=== PATIENT | male | born 1965 | race American Indian/Alaskan Native ===

== ENCOUNTER 2016-09-09 10:50 | Outpatient (CLI) | payer BC ==
[2016-09-09 11:15] LABS: Basophils % (Auto) 0.1 % (0.0-1.8); Eosinophils % (Auto) 1.4 % (0.0-4.3); Hematocrit 42.5 % (35.5-45.6); Mean Corpuscular HGB Conc 33 % (32-34); Mean Corpuscular Hemoglobin 29 pg (28-32); Mean Corpuscular Volume 89 fl (84-94); Platelet Count 296 K/mm3 (140-440); Red Cell Distribution Width 14.4 % (13.2-15.2); White Blood Count 8.4 K/mm3 (4.5-11.0)
[2016-09-09 11:45] LABS: Alanine Aminotransferase 19 units/L (7-56); Albumin 4.3 g/dL (3.9-5); Albumin/Globulin Ratio 1.3 %; Alkaline Phosphatase 74 units/L (35-129); Anion Gap 19 mmol/L; BUN/Creatinine Ratio 18.75; Bilirubin,Total 0.4 mg/dL (0.1-1.2); Blood Urea Nitrogen 15 mg/dL (9-20); Calcium 9.2 mg/dL (8.4-10.2); Carbon Dioxide 22 mmol/L (22-30); Chloride 102.8 mmol/L (98-107); Cholesterol 218 mg/dL (50-199); Glucose 95 mg/dL (75-100); HDL Cholesterol 48 mg/dL (40-59); LDL Cholesterol,Direct 142 mg/dL (50-130); Potassium 4.1 mmol/L (3.6-5.0); Sodium 140 mmol/L (137-145); Total Protein 7.5 g/dL (6.3-8.2); Triglycerides 143 mg/dL (2-149)
== END 2016-09-09 10:51 | disposition home or self-care (01) ==
LOC: LAB 10:50
DX: Z13.29 Encounter for screening for other suspected endocrine disorder (principal); Z12.5 Encounter for screening for malignant neoplasm of prostate; I10 Essential (primary) hypertension; E78.5 Hyperlipidemia, unspecified; R73.9 Hyperglycemia, unspecified
CPT/HCPCS: 36415; 80053; 80061; 83036; 84153; 84443; 85025

== ENCOUNTER 2017-05-21 07:28 | Day surgery (SDC) | payer BC ==
[~2017-05-21 07:28] MED LIST: WATER FOR IRRIG STERILE IR ONE; WATER FOR IRRIG STERILE ONE
[2017-05-21] MEDS ORDERED: NACL 0.9% 1000 ML 1,000 ML IV SCH (08:00)
--- NOTE | 2017-05-21 08:43 | Anesthesia Consultation ---
Anesthesia Consult and Med Hx Date of service: 05/21/17 - Airway Anesthetic Teeth Evaluation: Good ROM Head & Neck: Adequate Mental/Hyoid Distance: Adequate Mallampati Class: Class II Intubation Access Assessment: Probably Good - Pulmonary Exam CTA: Yes - Cardiac Exam Cardiac Exam: RRR - Pre-Operative Health Status ASA Pre-Surgery Classification: ASA2 Proposed Anesthetic Plan: MAC - Cardiovascular System Hx Hypertension: Yes - Additional Comments Anesthesia Medical History Comments: hypercholesterolemia
--- NOTE | 2017-05-21 08:43 | Anesthesia Day of Surgery ---
Anesthesia Day of Surgery - Day of Surgery Patient Examined: Yes Patient H&P Reviewed: Yes Patient is NPO: Yes
[2017-05-21] MEDS ORDERED: DIPRIVAN 10 MG/ML IV ONE ×2 (09:54)
--- NOTE | 2017-05-21 10:27 | Short Stay Summary ---
Short Stay Documentation Date of service: 05/21/17 Narrative H&P: Mr Bueno is a 51 yo AAM who presents for screening colonoscopy. Patient denies having prior colonoscopy. Denies gi complaints at this time including abd pain, gi bleeding, change in bowel habits, or weight loss. No known family h/o colon cancer. - History Past Medical History: hypertension, hyperlipidemia Past Surgical History: No surgical history Social history: other (occasional alcohol) - Allergies and Medications Current Medications: Allergies No Known Allergies Allergy (Verified 05/20/17 12:36) Home Medications Medication Instructions Recorded Confirmed Last Taken Type Irbesartan 1 tab PO DAILY 05/20/17 05/21/17 05/21/17 History Pravastatin 1 tab PO DAILY 05/20/17 05/21/17 05/21/17 History amLODIPine 1 tab PO DAILY 05/20/17 05/21/17 05/21/17 History Active Medications Sodium Chloride (Nacl 0.9% 1000 Ml) 1,000 mls @ 50 mls/hr IV DIRECT PATRICIO Last Admin: 05/21/17 08:28 Dose: 50 mls/hr - Physical exam General appearance: no acute distress HEENT: PERRLA, EOMI Lungs: Clear to auscultation Heart: Regular rate, Normal S1, Normal S2 Gastrointestinal: normal, normoactive bowel sounds Extremities: No edema, Full ROM - Brief post op/procedure progress note Date of procedure: 05/21/17 Pre-op diagnosis: screening colonoscopy Post-op diagnosis: other (colon polyps x 2 removed, internal hemorrhoids) Procedure: Colonoscopy with snare polypectomy and biopsy Anesthesia: MAC Findings: ~1.5-2 cm semi-pedunculated polyp in ascending colon, removed with hot snare polypectomy (retrieved) < 5 mm sessile polyp at the hepatic flexure, removed and retrieved with cold biopsy forceps Internal hemorrhoids Quality of prep was fair Surgeon: SANTOS MERCAHNT Estimated blood loss: minimal Pathology: list (Jar A - ascending colon polyp, Jar B - hepatic flexure polyp) Specimen disposition: to lab Condition: stable - Disposition Condition at discharge: Good Disposition: DC- TO HOME OR SELFCARE
--- NOTE | 2017-05-21 10:30 | Operative Report ---
Operative Report Operative Report: COLONOSCOPY PROCEDURE NOTE DATE OF PROCEDURE: 05/21/2017 ENDOSCOPIST: Sam Jalloh PRE-OP DIAGNOSIS: screening colonoscopy POST-OP DIAGNOSIS: colon polyps x 2, internal hemorrhoids, fair prep ANESTHESIA: MAC COMPLICATIONS: no immediate complications ESTIMATED BLOOD LOSS: minimal PROCEDURE: After consent was obtained, the patient was placed in the left lateral decubitus position. The fujinon colonoscope was inserted into the rectum under direct vision, and advanced to the cecum without difficulty. The patient tolerated the procedure well. The views of the mucosa were fair. The quality of prep was fair. The patient's vital signs were monitored continuously throughout the procedure. FINDINGS: There was one approximately 1.5-2cm semi-pedunculated polyp in the ascending colon. The polyp was removed with hot snare polypectomy, and retrieved. There was one < 5 mm sessile polyp at the hepatic flexure. The polyp was removed and retrieved with cold forceps biopsy. Internal hemorrhoids on retroflexion view. IMPRESSION: 1. Colon polyps removed as above 2. Internal hemorrhoids 3. Fair prep RECOMMENDATIONS: -follow-up pathology -repeat colonoscopy for surveillance in 3 years -no NSAIDs (ibuprofen, aleve, advil, motrin, naproxyn, goody powder, etc) for 5 days after polypectomy
[2017-05-21 10:46] VITALS: BP 115/79
--- NOTE | 2017-05-21 10:56 | Post Anesthesia Evaluation ---
- Post Anesthesia Evaluation Patient Participated: Yes Airway Patent: Yes Stable Respiratory Function: Yes Nausea/Vomiting: No Temp > 96.8F: Yes Pain Manageable: Yes Adequeate Hydration: Yes Anesthesia Complications: No Block Receding Appropriately: Not Applicable Patient on Ventilator: No
== END 2017-05-21 07:29 | disposition home or self-care (01) ==
LOC: GIO 07:28
PROVIDERS: ATTEND Internal Medicine Gastroenterology
DX: Z12.11 Encounter for screening for malignant neoplasm of colon (principal); D12.2 Benign neoplasm of ascending colon; D12.3 Benign neoplasm of transverse colon; K64.8 Other hemorrhoids; I10 Essential (primary) hypertension; E78.00 Pure hypercholesterolemia, unspecified; Z79.899 Other long term (current) drug therapy
CPT/HCPCS: 45380; 45384; 88305; J2704; J7030

== ENCOUNTER 2017-09-12 13:15 | Emergency (ER) | payer BC ==
[2017-09-12 13:26] VITALS: BP 136/84
[2017-09-12] MEDS ORDERED: NACL 0.9% 1000 ML 1,000 ML IV ONE (13:32)
[2017-09-12] MEDS ORDERED: ZOFRAN IV ONE (13:32)
--- NOTE | 2017-09-12 13:37 | Emergency Department Report ---
HPI - General Chief Complaint: Abdominal Pain Time Seen by Provider: 09/12/17 13:32 - HPI HPI: 51-year-old -[place] male, who is also a nurse here, presents as a patient the emergency Department with a complaint of some nausea, vomiting and abdominal cramping. He says that the symptoms began earlier this morning but worsened just prior to signing in as a patient. He just vomited 3 times in the bathroom. He denies any fever, dysuria or any actual abdominal pain at this time other than some cramping. He has a past medical history of hypertension. He denies any recent travel or any possibility of recent undercooked foods. He has not taken anything for her symptoms prior to presentation. ED Past Medical Hx - Past Medical History Previous Medical History?: Yes Hx Hypertension: Yes - Surgical History Past Surgical History?: No - Social History Smoking Status: Never Smoker Substance Use Type: Alcohol - Medications Home Medications: Home Medications Medication Instructions Recorded Confirmed Last Taken Type Irbesartan 1 tab PO DAILY 05/20/17 09/12/17 09/12/17 History Pravastatin 1 tab PO DAILY 05/20/17 09/12/17 09/12/17 History amLODIPine 1 tab PO DAILY 05/20/17 09/12/17 09/12/17 History Ondansetron [Zofran Odt] 4 mg PO Q8H PRN #14 tab.rapdis 09/12/17 Unknown Rx ED Review of Systems ROS: Stated complaint: N/V DEHYDRATION Other details as noted in HPI Comment: All other systems reviewed and negative Constitutional: denies: chills, fever Eyes: denies: eye pain, eye discharge, vision change ENT: denies: ear pain, throat pain Respiratory: denies: cough, shortness of breath, wheezing Cardiovascular: denies: chest pain, palpitations Gastrointestinal: nausea, vomiting Genitourinary: denies: urgency, dysuria Musculoskeletal: denies: back pain, joint swelling, arthralgia Skin: denies: rash, lesions Neurological: denies: headache, weakness, paresthesias Physical Exam - Physical Exam Vital Signs: Vital Signs 09/12/17 13:22 Temperature 98.2 F Pulse Rate 78 Respiratory 16 Rate Blood Pressure 136/84 O2 Sat by Pulse 100 Oximetry Physical Exam: GENERAL: The patient is well-developed well-nourished. HENT: Normocephalic. Atraumatic. Patient has moist mucous membranes. EYES: Extraocular motions are intact. NECK: Supple. Trachea is midline. CHEST/LUNGS: Clear to auscultation. There is no respiratory distress noted. HEART/CARDIOVASCULAR: Regular. There is no tachycardia. There is no murmur. ABDOMEN: Abdomen is soft, nontender. Patient has normal bowel sounds. There is no abdominal distention. SKIN: Skin is warm and dry. NEURO: The patient is awake, alert, and oriented. The patient is cooperative. The patient has no focal neurologic deficits. The patient has normal speech. MUSCULOSKELETAL: There is no tenderness or deformity. There is no limitation range of motion. There is no evidence of acute injury. ED Course Vital Signs 09/12/17 13:22 Temperature 98.2 F Pulse Rate 78 Respiratory 16 Rate Blood Pressure 136/84 O2 Sat by Pulse 100 Oximetry ED Medical Decision Making - Lab Data Result diagrams: 09/12/17 13:42 09/12/17 13:42 - Medical Decision Making The patient received a 1 L fluid bolus of normal saline and a dose of Zofran. Upon reevaluation he is feeling improved. He does not have any abdominal pain and says that he just feels slightly queasy. Labs are mostly unremarkable. There was a slight elevation in his white blood cell count and the lipase is most likely reactive to the nausea and vomiting. He will be discharged home with Zofran ODT and will return to the emergency department with any intractable vomiting, development of abdominal pain, worsening of his symptoms or any acute distress. Vital signs stable including being afebrile. - Differential Diagnosis gastroenteritis, food poisoning, viral syndrome, cholelcystitis, pancreatit Critical Care Time: No Critical care attestation.: If time is entered above; I have spent that time in minutes in the direct care of this critically ill patient, excluding procedure time. ED Disposition Clinical Impression: Abdominal cramping Nausea & vomiting Qualifiers: Vomiting type: unspecified Vomiting Intractability: non-intractable Qualified Code(s): R11.2 - Nausea with vomiting, unspecified Disposition: DC-01 TO HOME OR SELFCARE Is pt being admited?: No Condition: Stable Instructions: Acute Nausea and Vomiting (ED), Acute Abdominal Pain (ED) Additional Instructions: Increase your oral rehydration. Follow up with a primary care physician. Return to the emergency department with any intractable nausea/vomiting, any intense sharp abdominal pains, or with any acute distress. Prescriptions: Ondansetron [Zofran Odt] 4 mg PO Q8H PRN #14 tab.rapdis PRN Reason: Nausea Referrals: PRIMARY CARE, [Primary Care Provider] - 3-5 Days Time of Disposition: 15:02
[2017-09-12 14:24] LABS: Alanine Aminotransferase 16 units/L (7-56); Albumin 4.2 g/dL (3.9-5); BUN/Creatinine Ratio 14; Basophils % (Auto) 0.1 % (0.0-1.8); Blood Urea Nitrogen 13 mg/dL (9-20); Calcium 8.8 mg/dL (8.4-10.2); Eosinophils # (Auto) 0.1 K/mm3 (0.0-0.4); Eosinophils % (Auto) 0.6 % (0.0-4.3); Hemoglobin 13.7 gm/dl (11.8-15.2); Hemolysis Index 11; Lipase 86 units/L (13-60); Lymphocytes # (Auto) 1.2 K/mm3 (1.2-5.4); Lymphocytes % (Auto) 9.8 % (13.4-35.0); Mean Corpuscular HGB Conc 33 % (32-34); Mean Corpuscular Hemoglobin 29 pg (28-32); Mean Corpuscular Volume 88 fl (84-94); Monocytes # (Auto) 0.7 K/mm3 (0.0-0.8); Monocytes % (Auto) 5.9 % (0.0-7.3); Platelet Count 299 K/mm3 (140-440); Red Blood Count 4.67 M/mm3 (3.65-5.03); Red Cell Distribution Width 14.5 % (13.2-15.2)
== END 2017-09-12 15:45 | disposition home or self-care (01) ==
LOC: ED 13:15
DX: R10.9 Unspecified abdominal pain (principal); R11.2 Nausea with vomiting, unspecified; I10 Essential (primary) hypertension
CPT/HCPCS: 36415; 80053; 83690; 85025; 96361; 96374; 99283; J2405; J7030

== ENCOUNTER 2018-02-26 10:26 | Outpatient (CLI) | payer BC | END 2018-02-26 10:27 | disposition home or self-care (01) | LOC: LAB 10:26 | PROVIDERS: ATTEND Urology | DX: E03.9 Hypothyroidism, unspecified (principal); E78.00 Pure hypercholesterolemia, unspecified; I10 Essential (primary) hypertension | CPT/HCPCS: 36415 ==

== ENCOUNTER 2018-03-25 14:25 | Outpatient (CLI) | payer BC ==
[2018-03-25 15:46] LABS: Alanine Aminotransferase 18 units/L (7-56); Albumin 4.3 g/dL (3.9-5); BUN/Creatinine Ratio 16; Blood Urea Nitrogen 14 mg/dL (9-20); Calcium 9.2 mg/dL (8.4-10.2); Chol/HDL Ratio 4.28 %; HDL Cholesterol 52 mg/dL (40-59); Hemolysis Index 11; LDL Cholesterol,Direct 151 mg/dL (50-130)
== END 2018-03-25 14:26 | disposition home or self-care (01) ==
LOC: LAB 14:25
PROVIDERS: ATTEND Nurse Practitioner Family
DX: I10 Essential (primary) hypertension (principal); R73.03 Prediabetes; E55.9 Vitamin D deficiency, unspecified; E78.5 Hyperlipidemia, unspecified; E78.00 Pure hypercholesterolemia, unspecified; Z79.899 Other long term (current) drug therapy
CPT/HCPCS: 36415; 80053; 80061; 82306; 83036

== ENCOUNTER 2018-12-28 12:29 | Outpatient (CLI) | payer BC ==
[2018-12-28 13:14] LABS: Hematocrit 44.4 % (35.5-45.6); Hemoglobin 14.9 gm/dl (11.8-15.2); Mean Corpuscular HGB Conc 34 % (32-34); Mean Corpuscular Volume 89 fl (84-94); Platelet Count 300 K/mm3 (140-440); Red Blood Count 4.99 M/mm3 (3.65-5.03); Red Cell Distribution Width 15.2 % (13.2-15.2)
[2018-12-28 13:23] LABS: Alanine Aminotransferase 19 units/L (7-56); Albumin 4.5 g/dL (3.9-5); BUN/Creatinine Ratio 15; Blood Urea Nitrogen 12 mg/dL (9-20); Calcium 9.4 mg/dL (8.4-10.2); Hemolysis Index 3; LDL Cholesterol,Direct 260 mg/dL (50-130)
[2018-12-28 14:11] LABS: Chol/HDL Ratio 6.18 %; HDL Cholesterol 54 mg/dL (40-59)
== END 2018-12-28 12:30 | disposition home or self-care (01) ==
LOC: LAB 12:29
PROVIDERS: ATTEND Internal Medicine
DX: E78.2 Mixed hyperlipidemia (principal); N40.1 Benign prostatic hyperplasia with lower urinary tract symptoms; R53.83 Other fatigue; E78.00 Pure hypercholesterolemia, unspecified; I10 Essential (primary) hypertension
CPT/HCPCS: 36415; 80053; 80061; 83036; 84153; 84443; 85027

== ENCOUNTER 2019-05-28 12:04 | Outpatient (CLI) | payer BC ==
[2019-05-28 12:27] LABS: Alanine Aminotransferase 22 units/L (7-56); Albumin 4.3 g/dL (3.9-5); BUN/Creatinine Ratio 16; Blood Urea Nitrogen 13 mg/dL (9-20); Calcium 9.2 mg/dL (8.4-10.2); Chol/HDL Ratio 4.41 %; HDL Cholesterol 46 mg/dL (40-59); Hemolysis Index 19; LDL Cholesterol,Direct 132 mg/dL (50-130)
== END 2019-05-28 12:05 | disposition home or self-care (01) ==
LOC: LAB 12:04
PROVIDERS: ATTEND Internal Medicine
DX: E78.2 Mixed hyperlipidemia (principal); R53.83 Other fatigue
CPT/HCPCS: 36415; 80053; 80061

== ENCOUNTER 2020-06-28 09:09 | Outpatient (CLI) | payer BC ==
[2020-06-28 09:41] LABS: Hematocrit 40.7 % (35.5-45.6); Hemoglobin 13.7 gm/dl (11.8-15.2); Mean Corpuscular HGB Conc 34 % (32-34); Mean Corpuscular Volume 89 fl (84-94); Platelet Count 302 K/mm3 (140-440); Red Blood Count 4.56 M/mm3 (3.65-5.03); Red Cell Distribution Width 14.9 % (13.2-15.2)
[2020-06-28 10:04] LABS: Alanine Aminotransferase 23 units/L (7-56); Albumin 4.2 g/dL (3.9-5); BUN/Creatinine Ratio 13; Blood Urea Nitrogen 10 mg/dL (9-20); Calcium 9.1 mg/dL (8.4-10.2); Chol/HDL Ratio 4.46 %; HDL Cholesterol 49 mg/dL (40-59); Hemolysis Index 3; LDL Cholesterol,Direct 142 mg/dL (50-130)
== END 2020-06-28 09:10 | disposition home or self-care (01) ==
LOC: LAB 09:09
PROVIDERS: ATTEND Internal Medicine
DX: Z00.00 Encounter for general adult medical examination without abnormal findings (principal); N40.1 Benign prostatic hyperplasia with lower urinary tract symptoms; E11.65 Type 2 diabetes mellitus with hyperglycemia; R73.09 Other abnormal glucose; R53.83 Other fatigue; E78.2 Mixed hyperlipidemia
CPT/HCPCS: 36415; 80053; 80061; 83036; 84153; 84443; 85027

== ENCOUNTER 2021-03-15 11:01 | Outpatient (CLI) | payer BC ==
[2021-03-15 11:43] LABS: Chol/HDL Ratio 5.31 %
== END 2021-03-15 11:02 | disposition home or self-care (01) ==
LOC: LAB 11:01
PROVIDERS: ATTEND Internal Medicine
DX: E78.5 Hyperlipidemia, unspecified (principal)
CPT/HCPCS: 36415; 80061

== ENCOUNTER 2021-08-26 07:16 | Emergency (ER) | payer BC ==
[2021-08-26] MEDS ORDERED: KETOROLAC 30 MG/1 ML INJ IV ONE (07:17)
[2021-08-26] MEDS ORDERED: SODIUM CHLORIDE 0.9% 1000 ML 1,000 ML IV ONE ×2 (07:17→09:03)
[2021-08-26 07:22] VITALS: BP 147/98
--- NOTE | 2021-08-26 07:26 | Emergency Department Report ---
ED Abdominal Pain HPI - General Chief Complaint: Abdominal Pain Stated Complaint: LEFT FLANK PAIN Time Seen by Provider: 08/26/21 07:17 Source: patient Mode of arrival: Ambulatory Limitations: No Limitations - History of Present Illness Initial Comments: Patient presents with left flank pain. He was having difficulty sleeping last night and could not get comfortable. The pain has persisted into this morning. He still cannot find a position of comfort. He has not noticed hematuria. He has never had symptoms of this nature before. The pain does not radiate into his abdomen. It is only in the left flank. Pain actually started a couple of days ago. It seemed to worsen the. He could not get comfortable as previously documented. There was no other urinary symptom. He was concerned for possible pulmonary embolism. He has never had a PE before. He did have a recent trip to the [facility]. He has not noticed any pain or swelling in the legs. Pain is slightly pleuritic. There is no family history of PE. Severity scale (0 -10): 4 - Related Data Home Medications Medication Instructions Recorded Confirmed Last Taken Irbesartan 1 tab PO DAILY 05/20/17 09/12/17 09/12/17 Pravastatin 1 tab PO DAILY 05/20/17 09/12/17 09/12/17 amLODIPine 1 tab PO DAILY 05/20/17 09/12/17 09/12/17 Previous Rx's Medication Instructions Recorded Last Taken Type Ondansetron [Zofran Odt] 4 mg PO Q8H PRN #14 tab.rapdis 09/12/17 Unknown Rx Ibuprofen [Motrin] 600 mg PO Q8H PRN #30 tablet 08/26/21 Unknown Rx Allergies Allergy/AdvReac Type Severity Reaction Status Date / Time No Known Allergies Allergy Verified 05/20/17 12:36 ED Review of Systems ROS: Stated complaint: LEFT FLANK PAIN Other details as noted in HPI Comment: All other systems reviewed and negative Constitutional: denies: fever Eyes: denies: vision change ENT: denies: throat pain Respiratory: denies: cough Cardiovascular: denies: chest pain Gastrointestinal: as per HPI Genitourinary: as per HPI Musculoskeletal: as per HPI Skin: denies: rash Neurological: denies: headache Hematological/Lymphatic: denies: easy bruising ED Past Medical Hx - Past Medical History Hx Hypertension: Yes - Family History Family history: other (Negative for PE) - Social History Smoking Status: Never Smoker Substance Use Type: Alcohol - Medications Home Medications: Home Medications Medication Instructions Recorded Confirmed Last Taken Type Irbesartan 1 tab PO DAILY 05/20/17 09/12/17 09/12/17 History Pravastatin 1 tab PO DAILY 05/20/17 09/12/17 09/12/17 History amLODIPine 1 tab PO DAILY 05/20/17 09/12/17 09/12/17 History Ondansetron [Zofran Odt] 4 mg PO Q8H PRN #14 tab.rapdis 09/12/17 Unknown Rx Ibuprofen [Motrin] 600 mg PO Q8H PRN #30 tablet 08/26/21 Unknown Rx ED Physical Exam - General Limitations: No Limitations, Other (Pulse ox noted and normal) General appearance: alert, in no apparent distress, other (Appears uncomfortable) - Head Head exam: Present: atraumatic, normocephalic - Eye Eye exam: Present: normal appearance. Absent: scleral icterus - ENT ENT exam: Present: normal external ear exam - Neck Neck exam: Present: normal inspection. Absent: meningismus - Respiratory Respiratory exam: Present: normal lung sounds bilaterally. Absent: respiratory distress - Cardiovascular Cardiovascular Exam: Present: regular rate, normal rhythm - GI/Abdominal GI/Abdominal exam: Present: soft. Absent: distended, tenderness, pulsatile mass - Extremities Exam Extremities exam: Present: normal capillary refill - Back Exam Back exam: Present: CVA tenderness (L). Absent: CVA tenderness (R) - Neurological Exam Neurological exam: Present: alert, oriented X3, normal gait. Absent: motor sensory deficit - Psychiatric Psychiatric exam: Present: normal affect, normal mood - Skin Skin exam: Present: warm, dry ED Course Vital Signs 08/26/21 07:18 Temperature 97.4 F L Pulse Rate 88 Respiratory 18 Rate Blood Pressure 147/98 [Right] O2 Sat by Pulse 95 Oximetry - Reevaluation(s) Reevaluation #1: 08/26/21 07:26 IV, labs, and CT were ordered. Old records noted. Reevaluation #2: 08/26/21 08:51 Patient is resting comfortably at this time. Chemistries and CT have been noted. UA is pending. Reevaluation #3: 08/26/21 10:21 UA was noted. Patient provides additional history and concern for PE. We discussed his limited risk factors and the fact that he is really not a high risk patient for a PE. We decided on addition of a D-dimer. This was ordered. Reevaluation #4: 08/26/21 13:31 D-dimer had been noted and negative and the patient was discharged. ED Medical Decision Making - Lab Data Result diagrams: 08/26/21 07:35 - Radiology Data Radiology results: report reviewed - Medical Decision Making Patient presents with left flank pain and difficulty finding a position of co mfort. There was concern for ureteral colic although there was no stone visualized on CT. Likewise, there was no tumor or mass on CT. There was no evidence of bowel obstruction. He did not have evidence of AAA. There was no trauma to suggest acute injury accounting for the left flank pain. He did not have left lower quadrant abdominal tenderness that would have suggested diverticular process. Later in the course there was mention of possible PE and recent travel. As there was no other explanation for the symptoms, D-dimer was added on. Patient is low risk. PERC criteria cannot be used due to age. However the D-dimer is normal and the patient was discharged. Critical Care Time: No Critical care attestation.: If time is entered above; I have spent that time in minutes in the direct care of this critically ill patient, excluding procedure time. ED Disposition Clinical Impression: Left flank pain Disposition: 01 HOME / SELF CARE / HOMELESS Is pt being admited?: No Condition: Stable Instructions: Flank Pain, Adult, [id number], Pain Without a Known Cause Additional Instructions: Drink plenty of water. Return for problems. Follow-up with your regular doctor for recheck and further management. Prescriptions: Ibuprofen [Motrin] 600 mg PO Q8H PRN #30 tablet PRN Reason: Pain Referrals: JODY PINK MD [Primary Care Provider] - 3-5 Days
--- NOTE | 2021-08-26 08:09 | Cat Scan Report ---
CT abdomen pelvis wo con INDICATION: flank pain left side. TECHNIQUE: All CT scans at this location are performed using CT dose reduction for ALARA by means of automated e xposure control. COMPARISON: None available. FINDINGS: The included lung bases are clear. The solid parenchymal organs of the abdomen appear normal. There are no urinary stones. There is no hydronephrosis. There are no acute bowel abnormalities. There is a small fat-containing umbilical hernia. No abdomina l or pelvic adenopathy is seen. The visualized bones demonstrate no aggressive appearing bone lesions. IMPRESSION: 1. No acute findings or findings to explain left flank pain. Signer Name: Real Gonzales MD Signed: 08/26/2021 8:05 AM Workstation Name: [id number]
[2021-08-26 08:21] LABS: BUN/Creatinine Ratio 20; Blood Urea Nitrogen 16 mg/dL (9-20); Hemolysis Index 10
[2021-08-26 08:47] LABS: Bilirubin,Urine NEG (Negative); Blood,Urine NEG (Negative); Color,Urine Yellow (Yellow); Protein,Urine <15 mg/dL mg/dL (Negative); Urobilinogen,Urine < 2.0 mg/dL (<2.0)
== END 2021-08-26 11:11 | disposition home or self-care (01) ==
LOC: ED 07:16
DX: R10.9 Unspecified abdominal pain (principal); I10 Essential (primary) hypertension
CPT/HCPCS: 36415; 74176; 80048; 81001; 85379; 96361; 96374; 99284; J1885; J7030; Q0162